=== PATIENT | female | born 1980 | race Caucasian/White ===

== ENCOUNTER → 2017-03-02 | Outpatient (CLI) | payer BC ==
[~2017-03-02] MED LIST: LEVOTHYROXINE PO; MVI; SYNTHROID0.088 MG/T PO; TRAMADOL50 MG PO
== END ==
LOC: COL.RAD 02-28 09:00
DX: E03.8 Other specified hypothyroidism (principal); N85.8 Other specified noninflammatory disorders of uterus; R68.82 Decreased libido; G47.09 Other insomnia; R53.83 Other fatigue; Z80.3 Family history of malignant neoplasm of breast

== ENCOUNTER → 2019-02-05 | Outpatient (REF) ==
[~2019-02-05] MED LIST changes: +CEFTIN500 MG PO; +NORCO 325 MG-51 TAB PO; +NTHROIDNT3/4; +ZOFRAN ODT4 MG PO
[2019-02-05 17:27] LABS: THYROID STIMULATING HORMONE 2.74 uIU/mL (0.465-4.680)
== END ==
LOC: ZLAB.WCH 16:21
PROVIDERS: Emergency Medicine
DX: Z01.89 Encounter for other specified special examinations (principal)

== ENCOUNTER → 2020-09-30 | Outpatient (CLI) | payer BC | LOC: MC.RAD 12:50 | DX: Z12.31 Encounter for screening mammogram for malignant neoplasm of breast (principal) ==

== ENCOUNTER → 2021-12-30 | Outpatient (CLI) | payer BC | LOC: MC.RAD 08:06 | DX: Z12.31 Encounter for screening mammogram for malignant neoplasm of breast (principal) ==

== ENCOUNTER → 2023-01-04 | Outpatient (CLI) | payer SELFPAY | LOC: MC.RAD 10:22 | DX: Z12.31 Encounter for screening mammogram for malignant neoplasm of breast (principal) ==